=== PATIENT | male | born 1945 | race Two or more races ===

== ENCOUNTER 2022-04-26 20:08 | Emergency (ER) | payer BC ==
[~2022-04-26] VITALS: Ht 170.2 cm; Wt 60.0 kg
[2022-04-26 20:08] VITALS: BP 144/100
== END 2022-04-27 05:01 | disposition left against medical advice (07) ==
LOC: ER 20:08
DX: R53.1 Weakness (principal); M25.561 Pain in right knee; R35.0 Frequency of micturition; R07.89 Other chest pain; Z53.21 Procedure and treatment not carried out due to patient leaving prior to being seen by health care provider; W19.XXXA Unspecified fall, initial encounter; Y93.89 Activity, other specified; Y92.89 Other specified places as the place of occurrence of the external cause; Y99.8 Other external cause status
CPT/HCPCS: 71045; 93005